=== PATIENT | female | born 2000 | race Caucasian/White ===

== ENCOUNTER 2020-04-07 17:21 | Emergency (ER) | payer OTHER ==
[2020-04-07 17:41] VITALS: BMI 26.5
[2020-04-07] MEDS ORDERED: SODIUM CHLORIDE 500 ML IV STA (18:08)
[2020-04-07] MEDS ORDERED: SODIUM CHLORIDE 1,000 ML IV STA (18:09)
[2020-04-07 18:57] LABS: HEMATOCRIT 36.6 % (32.4-45.2); HEMOGLOBIN 12.5 GM/dL (10.7-15.3); MCH 28.9 pg (25.7-33.7); MCHC 34.2 g/dl (32.0-36.0); MEAN CELL VOLUME 84.5 fl (80-96); MEAN PLT VOLUME 8.7 fl (7.5-11.1); PLATELET COUNT 223 K/MM3 (134-434); RBC 4.32 M/mm3 (3.60-5.2); RDW 18.3 % (11.6-15.6); WHITE BLOOD COUNT 10.3 K/mm3 (4.0-10.0)
[2020-04-07 19:05] LABS: INR 1.01 (0.83-1.09); PROTHROMBIN TIME (PATIENT) 12.4 SEC (9.7-13.0)
[2020-04-07 19:07] LABS: ACTIVATED PTT 26.3 SECONDS (25.2-36.5)
[2020-04-07 19:14] LABS: POTASSIUM 3.9 mmol/L (3.5-5.1)
[2020-04-07 19:16] LABS: CALCIUM 8.9 mg/dL (8.5-10.1)
[2020-04-07 19:17] LABS: ALBUMIN 3.9 g/dl (3.4-5.0); BLOOD UREA NITROGEN 5.3 mg/dL (7-18)
[2020-04-07 19:20] LABS: CREATININE 0.7 mg/dL (0.55-1.3)
[2020-04-07] MEDS ORDERED: guaiFENesin 600 MG TABLET.ER (FP) PO ONE (19:20)
[2020-04-07 19:22] LABS: BILIRUBIN,TOTAL 0.4 mg/dL (0.2-1); TOT PROT 7.8 g/dl (6.4-8.2)
[2020-04-07] MEDS ORDERED: ACETAMINOPHEN 1000 MG/100 ML VIAL (NON FORMULARY) IVPB ONE (20:09)
[2020-04-07] MEDS ORDERED: ACETAMINOPHEN INJECTION 100 ML IVPB ONE (20:10)
[2020-04-07 21:28] VITALS: BP 123/79; PULSE 76; TEMP 98.6
== END 2020-04-07 21:29 | disposition left against medical advice (07) ==
LOC: JER 17:21
PROC: 3E0333Z Introduction of Anti-inflammatory into Peripheral Vein, Percutaneous Approach (ICD-10-PCS; principal; 2020-04-07)
PROC: 3E033GC Introduction of Other Therapeutic Substance into Peripheral Vein, Percutaneous Approach (ICD-10-PCS; 2020-04-07)
DX: N93.8 Other specified abnormal uterine and vaginal bleeding (principal)
CPT/HCPCS: 36415; 76815-TC; 80053; 84702; 85027; 85610; 85730; 86850; 86900; 86901; 99284-25; J0131

== ENCOUNTER 2024-08-25 13:44 | Emergency (ER) | payer OTHER ==
[2024-08-25 13:57] VITALS: BP 130/76; PULSE 56; RESP 18; TEMP 98.7; BMI 23.0
[2024-08-25] MEDS ORDERED: ONDANSETRON 4 MG/2 ML VIAL IVPUSH ONE (14:47)
[2024-08-25] MEDS ORDERED: morphine SULFATE 4 MG/ML VIAL ONE (14:49)
[2024-08-25] MEDS: LACTATED RINGERS SOLUTION 1000 ML INFUS.BAG IV ONE (15:17)
[2024-08-25] MEDS: morphine CARPU-JECT 4 MG/1 ML DISP.SYRIN IVPUSH ONE (15:17)
[2024-08-25 15:25] LABS: ABSOLUTE IMMATURE GRANULOCYTES 0.03 x10^3/uL (0.0-0.031); BASOPHILS # 0.02 x10^3/uL (0.01-0.08); EOSINOPHIL % 0.1 % (0.7-5.8); EOSINOPHILS # 0.01 x10^3/uL (0.04-0.36); HEMATOCRIT 41.5 % (34.1-44.9); HEMOGLOBIN 13.7 g/dL (11.2-15.7); MEAN CELL VOLUME 91.6 fl (79.4-94.8); MONOCYTE # 0.17 x10^3/uL (0.24-0.86); MONOCYTE % 2.1 % (4.7-12.5); RDW 12.6 % (12.1-16.5)
[2024-08-25 15:42] LABS: CHLORIDE 107 mmol/L (98-107); SODIUM 135 mmol/L (136-145)
[2024-08-25 15:43] LABS: CALCIUM 10.1 mg/dL (8.5-10.1)
[2024-08-25 15:44] LABS: ALBUMIN 4.4 g/dl (3.4-5.0); BLOOD UREA NITROGEN 8.9 mg/dL (7-18); CO2 23 mmol/L (21-32); GLUCOSE,RANDOM 116 mg/dL (74-106); MAGNESIUM 2.5 mg/dL (1.8-2.4)
[2024-08-25 15:46] LABS: ANION GAP 5 mmol/L (4-13); POTASSIUM 7.2 mmol/L (3.5-5.1)
[2024-08-25 15:47] LABS: CREATININE 0.8 mg/dL (0.55-1.3); SGOT/AST 69 U/L (15-37)
[2024-08-25 15:48] LABS: BILIRUBIN,TOTAL 0.5 mg/dL (0.2-1)
[2024-08-25 15:50] LABS: ALK PHOS 135 U/L (45-117); SGPT/ALT 24 U/L (13-61)
[2024-08-25] MEDS ORDERED: ACETAMINOPHEN INJECTION 100 ML ONE (16:28)
[2024-08-25] MEDS: ACETAMINOPHEN 1000 MG/100 ML BAG IVPB ONE (16:34)
[2024-08-25 16:42] LABS: HCV DIAGNOSTIC IN-HOUSE W/RFLX NON-REACTIVE (NONREACTIVE)
[2024-08-25 16:43] LABS: HIV INTERPRETATION NEGATIVE (NEGATIVE)
[2024-08-25 16:49] LABS: POTASSIUM 4.2 mmol/L (3.5-5.1)
[2024-08-25 16:50] LABS: CALCIUM 9.6 mg/dL (8.5-10.1)
[2024-08-25 16:52] LABS: BLOOD UREA NITROGEN 8.5 mg/dL (7-18)
[2024-08-25] MEDS ORDERED: metroNIDAZOLE 250 MG TABLET ONE (16:53)
[2024-08-25 16:54] LABS: CREATININE 0.7 mg/dL (0.55-1.3)
[2024-08-25] MEDS ORDERED: cefTRIAXone SODIUM 1 GM VIAL ONE (16:54)
[2024-08-25] MEDS ORDERED: DOXYCYCLINE HYCLATE 100 MG TABLET PO ONE (16:54)
[2024-08-25] MEDS: DOXYCYCLINE HYCLATE 100 MG CAPSULE PO ONE (17:08)
[2024-08-25] MEDS: metroNIDAZOLE 500 MG TABLET PO ONE (17:08)
[2024-08-25] MEDS ORDERED: ONDANSETRON 4 MG/2 ML VIAL ONE (18:01)
[2024-08-25] MEDS: ONDANSETRON 4 MG/2 ML VIAL IVPUSH ONE (18:08)
[2024-08-25 19:00] LABS: PH,URINE 7.5 (5.0-8.0); URINE APPEARANCE CLEAR; URINE BILIRUBIN NEGATIVE (NEGATIVE); URINE COLOR YELLOW; URINE GLUCOSE (UA) NEGATIVE (NEGATIVE); URINE KETONE 2+ (NEGATIVE); URINE LEUK ESTERASE NEGATIVE (NEGATIVE); URINE NITRITE NEGATIVE (NEGATIVE); URINE PROTEIN NEGATIVE (NEGATIVE); URINE UROBILINOGEN 0.2 mg/dL (0.2-1.0)
== END 2024-08-25 18:34 | disposition home or self-care (01) ==
LOC: JER 13:44
PROC: 3E033NZ Introduction of Analgesics, Hypnotics, Sedatives into Peripheral Vein, Percutaneous Approach (ICD-10-PCS; principal; 2024-08-25)
PROC: 3E033NZ Introduction of Analgesics, Hypnotics, Sedatives into Peripheral Vein, Percutaneous Approach (ICD-10-PCS; 2024-08-25)
PROC: 3E033GC Introduction of Other Therapeutic Substance into Peripheral Vein, Percutaneous Approach (ICD-10-PCS; 2024-08-25)
PROC: 3E02329 Introduction of Other Anti-infective into Muscle, Percutaneous Approach (ICD-10-PCS; 2024-08-25)
DX: N73.9 Female pelvic inflammatory disease, unspecified (principal); R10.31 Right lower quadrant pain; R10.32 Left lower quadrant pain; R11.2 Nausea with vomiting, unspecified
CPT/HCPCS: 36415; 76830-TC; 80048; 80053; 81003; 83605; 83690; 83735; 84703; 85025; 86803; 87086; 87389; 87491; 87591; 87661; 96372; 96374; 96375; 99285-25; J0131